=== PATIENT | female | born 1960 | race Caucasian/White ===

== ENCOUNTER → 2025-01-16 | Outpatient (CLI) | payer MEDICARE, OTHER, SELFPAY ==
--- NOTE | 2025-01-16 09:50 | NEURO_ITS ---
NCS and/or EMG Patient Report Ordering Doctor: Kelli Romero NP DATE OF SERVICE: 01/16/25 Clinical Summary: 64 year old female patient with symptoms of tingling in both upper extremities. Nerve Conduction Studies Summary: Nerve conduction studies were performed in the bilateral upper extremities. The right median-D2 SNAP distal latency was prolonged. Needle Examination Summary: Needle examination of select muscles in the bilateral upper extremities was normal. Impression: This is an abnormal study. There is electrodiagnostic evidence of a mild, right median mononeuropathy at the wrist (carpal tunnel syndrome), with sensory fiber demyelination. There is no electrodiagnostic evidence of a right/left cervical radiculopathy or ulnar mononeuropathy. There is no electrodiagnostic evidence of a peripheral polyneuropathy in the bilateral upper extremities. Multi Select Codes Neurology Neurology Interp Codes: 18775-78 Musc test done w/n test comp (interp) (2) and 91797-22 Nrv cndj test 11-12 studies (interp)
== END | disposition home or self-care (01) ==
LOC: PSN 08:14
PROVIDERS: PCP Physician Assistant; Referring Provider Nurse Practitioner Family; Visit Provider Nurse Practitioner Family
DX: R20.2 Paresthesia of skin (principal)
CPT/HCPCS: 95886; 95912

== ENCOUNTER → 2025-01-24 | Outpatient (CLI) | payer MEDICARE, OTHER, SELFPAY ==
--- NOTE | 2025-01-24 13:17 | NEURO_ITS ---
NCS and/or EMG Patient Report
--- NOTE | 2025-01-24 13:17 | NEURO ---
NCS and/or EMG Patient Report Ordering Doctor: Kelli Romero NP DATE OF SERVICE: 01/24/25 Presents for electrodiagnostic testing of the lower limbs. She reports weakness in both legs. Electrodiagnostic findings: Peroneal motor nerve demonstrates normal distal latency, amplitude and conduction velocity bilaterally. Tibial motor response within normal limits bilaterally. Prolonged sural latency is noted bilaterally. Normal superficial peroneal response. Prolonged left tibial F?wave. Prolonged H?reflex bilaterally. Needle EMG testing was performed the lower limbs. All muscles tested showed no evidence of denervation with normal motor unit action potentials. Electrodiagnostic impression: This is an abnormal study in the lower limbs 1. Electrodiagnostic findings are suggestive of a mild sensory polyneuropathy. 2. There is no electrodiagnostic evidence for lumbosacral radiculopathy. 3. There is no electrodiagnostic evidence for myopathy. Multi Select Codes Neurology Neurology Interp Codes: 90146-82 Musc test done w/n test comp (interp) (2) and 31328-86 Nrv cndj test 9-10 studies (interp)
== END | disposition home or self-care (01) ==
LOC: PSN 06:34
PROVIDERS: PCP Physician Assistant; Referring Provider Nurse Practitioner Family; Visit Provider Nurse Practitioner Family
DX: G62.9 Polyneuropathy, unspecified (principal); R20.2 Paresthesia of skin
CPT/HCPCS: 95886; 95911